=== PATIENT | female | born 1940 | race Two or more races ===

== ENCOUNTER 2023-08-05 10:24 | Inpatient (IN) | payer OTHER ==
[~2023-08-05] VITALS: Ht 61 cm; Wt 57.2 kg
[2023-08-05 12:13] LABS: INR 1.21; PARTIAL THROMBOPLASTIN TIME 27.8 SECONDS (22.0-34.0); PROTHROMBIN TIME 12.5 SECONDS (9.0-11.5)
[2023-08-05 13:35] LABS: HEMATOCRIT 34.6 % (36.0-45.00); MEAN CELL VOLUME 78.2 fL (80.00-100.00); MEAN CORPUSCULAR HEMOGLOBIN 24.8 pg (27.00-32.0); MEAN CORPUSCULAR HGB CONC 31.8 g/dl (32.0-36.0); PLATELET COUNT 235 K/uL (150-450); RED BLOOD COUNT 4.43 M/uL (4.00-6.00); RED CELL DISTRIBUTION WIDTH 18.4 % (11.5-14.5)
[2023-08-05 14:47] LABS: ALBUMIN 2.3 gm/dL (3.4-5.0); BILIRUBIN TOTAL 0.42 mg/dL (0.3-1.2); CALCIUM 7.9 mg/dL (8.5-10.1); CREATININE SERUM 0.53 mg/dL (0.55-1.02); GFR 110.99; GLOBULINA 3.5 G/DL (2.4-3.5); TOTAL PROTEIN 5.8 gm/dL (6.4-8.2)
[2023-08-05 15:16] LABS: POTASSIUM 2.54 mEq/L (3.5-5.1)
[2023-08-06] MEDS ORDERED: COZAAR25 MG PO (09:23)
[2023-08-06] MEDS ORDERED: TOPROL XL25 M1 PO (09:23)
[2023-08-06] MEDS ORDERED: PROTONIX IV40 MG IV (09:24)
[2023-08-06] MEDS ORDERED: PIPERACIL-TA3.375 GM IV (09:27)
[2023-08-06 15:45] LABS: CALCIUM 7.9 mg/dL (8.5-10.1); CREATININE SERUM 0.49 mg/dL (0.55-1.02); GFR 121.51
[2023-08-06 16:06] LABS: POTASSIUM 2.54 mEq/L (3.5-5.1)
[2023-08-08 07:08] LABS: HEMOGLOBIN 11.6 g/dL (12.0-15.00); MEAN CELL VOLUME 77.2 fL (80.00-100.00); MEAN CORPUSCULAR HEMOGLOBIN 26.2 pg (27.00-32.0); PLATELET COUNT 222 K/uL (150-450); RED CELL DISTRIBUTION WIDTH 18.4 % (11.5-14.5)
[2023-08-08 07:28] LABS: CREATININE SERUM 0.56 mg/dL (0.55-1.02); GFR 104.16; POTASSIUM 3.31 mEq/L (3.5-5.1)
[2023-08-10 08:08] LABS: ALBUMIN 2.1 gm/dL (3.4-5.0); CREATININE SERUM 0.63 mg/dL (0.55-1.02); GFR 90.92
[2023-08-10 08:15] LABS: HEMATOCRIT 29.9 % (36.0-45.00); MEAN CORPUSCULAR HGB CONC 33.6 g/dl (32.0-36.0); PLATELET COUNT 194 K/uL (150-450); RED BLOOD COUNT 3.88 M/uL (4.00-6.00); RED CELL DISTRIBUTION WIDTH 18.4 % (11.5-14.5)
[2023-08-10 09:42] LABS: POTASSIUM 2.72 mEq/L (3.5-5.1)
[2023-08-10 09:50] LABS: MEAN CORPUSCULAR HEMOGLOBIN 25.7 pg (27.00-32.0)
[2023-08-11 08:01] LABS: CALCIUM 7.7 mg/dL (8.5-10.1); CREATININE SERUM 0.5 mg/dL (0.55-1.02); GFR 118.71
[2023-08-11 08:16] LABS: HEMATOCRIT 30.7 % (36.0-45.00); HEMOGLOBIN 10.4 g/dL (12.0-15.00); MEAN CELL VOLUME 76.7 fL (80.00-100.00); MEAN CORPUSCULAR HGB CONC 33.9 g/dl (32.0-36.0); PLATELET COUNT 180 K/uL (150-450); RED CELL DISTRIBUTION WIDTH 18.5 % (11.5-14.5)
[2023-08-11 09:14] LABS: POTASSIUM 2.78 mEq/L (3.5-5.1)
[2023-08-12 08:07] LABS: CALCIUM 7.7 mg/dL (8.5-10.1); CREATININE SERUM 0.48 mg/dL (0.55-1.02); GFR 124.44
[2023-08-12 09:14] LABS: POTASSIUM 2.89 mEq/L (3.5-5.1)
[2023-08-14 11:57] LABS: CALCIUM 8.4 mg/dL (8.5-10.1); CREATININE SERUM 0.58 mg/dL (0.55-1.02); GFR 100.02; POTASSIUM 4.25 mEq/L (3.5-5.1)
== END 2023-08-14 17:37 | disposition home or self-care (01) | DRG 392 ==
LOC: ER 10:24 → SURG 11:17 → SURH 08-11 09:37
PROVIDERS: Internal Medicine; Internal Medicine Geriatric Medicine; ADMIT Surgery; ATTEND Surgery
PROC: BW21ZZZ Computerized Tomography (CT Scan) of Abdomen and Pelvis (ICD-10-PCS; 2023-08-06)
PROC: B24BYZZ Ultrasonography of Heart with Aorta using Other Contrast (ICD-10-PCS; 2023-08-06)
PROC: BW21YZZ Computerized Tomography (CT Scan) of Abdomen and Pelvis using Other Contrast (ICD-10-PCS; 2023-08-07)
PROC: 02HV33Z Insertion of Infusion Device into Superior Vena Cava, Percutaneous Approach (ICD-10-PCS; principal; 2023-08-09)
PROC: 3E0436Z Introduction of Nutritional Substance into Central Vein, Percutaneous Approach (ICD-10-PCS; 2023-08-11)
PROC: 8E0ZXY6 Isolation (ICD-10-PCS; 2023-08-11)
DX: K57.30 Diverticulosis of large intestine without perforation or abscess without bleeding (principal); I48.91 Unspecified atrial fibrillation; K60.3 Anal fistula; J10.1 Influenza due to other identified influenza virus with other respiratory manifestations; I10 Essential (primary) hypertension; E11.9 Type 2 diabetes mellitus without complications; Z79.4 Long term (current) use of insulin